=== PATIENT | male | born 1945 | race Caucasian/White ===

== ENCOUNTER 2019-03-17 16:47 | Emergency (ER) | payer MEDICARE, SELFPAY ==
[2019-03-17] VITALS (33 sets, daily range): BP systolic 187–204; BP diastolic 124–140; PULSE 88–100; RESP 12–30; TEMP 36.8; O2SAT 94–99; BMI 26.6
--- NOTE | 2019-03-17 17:30 | PC.NURSE ---
Pt refused to give pharmacy of choice. States will not be taking medications. Pt & very upset the CT was not ordered. [facility] called ED back & confirmed pt was to come to ED to be seen & eval for CT
--- NOTE | 2019-03-17 18:49 | ED_ITS ---
Entered by Adal Caldwell, acting as scribe for Mar 17, 2019 16:47 HPI - Neuro Symptoms/Deficit General: Chief Complaint: Neuro Symptoms/Deficit Stated Complaint: UNSTABLE BALANCE AND NO VIISON IN RIGHT EYE PFSH ED PFSH: Statuses (acute, chronic, etc) shown below reflect problem list status as previously entered and may not be historically accurate Social History (Updated 03/17/19 @ 15:01 by Gabbie Burton LPN) Smoking and tobacco status: former smoker Alcohol intake: current Alcohol intake frequency: 0-2 Drinks per Day History of recent travel: No Course Vital Signs: Vital signs: Vital Signs Temperature 98.2 F 03/17/19 17:19 Pulse Rate 100 03/17/19 17:19 Respiratory Rate 16 03/17/19 17:19 Blood Pressure 204/128 03/17/19 17:19 Pulse Oximetry 96 03/17/19 17:19 Discharge Plan Discharge Prescriptions: No Action No Known Home Medications RF: 0 Coding Level of Care Code ED Community Facilitator for Jackelyn Logan
--- NOTE | 2019-03-17 18:58 | CTR_ITS ---
PROCEDURE INFORMATION: Exam: CT Head Without Contrast Exam date and time: 03/17/2019 7:24 PM Age: 73 years old Clinical indication: Visual disturbance; Additional info: Vision loss TECHNIQUE: Imaging protocol: Computed tomography of the head without contrast. Total DLP: 782.83 mGy-cm Radiation optimization: All CT scans at this facility use at least one of these dose optimization techniques: automated exposure control; mA and/or kV adjustment per patient size (includes targeted exams where dose is matched to clinical indication); or iterative reconstruction. COMPARISON: No relevant prior studies available. FINDINGS: Brain: There is volume loss and periventricular low density compatible with small vessel disease changes. No acute hemorrhage, edema or mass effect. No midline shift. Ventricles: The ventricles are mildly dilated. There is dilatation of all ventricles including the temporal horns of the lateral ventricles and the 3rd ventricle. Some of the periventricular low density may reflect transependymal absorption of CSF. This diffuse mild dilatation concerning for mild normal pressure hydrocephalus. Bones/joints: Unremarkable. No acute fracture. Sinuses: Patchy mucosal thickening is noted in the sinuses with a few small air-fluid levels. Mastoid air cells: Visualized mastoid air cells are well aerated. Soft tissues: Unremarkable. CT/CT head wo con* [id number] IMPRESSION: 1. The ventricles are mildly prominent. There is diffuse mild dilatation concerning for mild normal pressure hydrocephalus. Otherwise no acute intracranial abnormality. 2. Patchy mucosal thickening is noted in the sinuses with a few small air-fluid levels. Radiation Dose CTDIVOL = (mGy): DLP = 782.83 (mGy-cm)
--- NOTE | 2019-03-17 19:04 | ED_ITS ---
Entered by Teri Flores, acting as scribe for Mar 17, 2019 16:47 HPI - Neuro Symptoms/Deficit General: Chief Complaint: Neuro Symptoms/Deficit Stated Complaint: UNSTABLE BALANCE AND NO VIISON IN RIGHT EYE Time Seen by Provider: 03/17/19 19:34 Source: patient and family Mode of arrival: ambulatory Limitations: no limitations History of Present Illness: HPI Narrative: Mr. Munoz is a nice 73-year-old male who comes in complaining of right eye blindness for the past 6 to 8 days. Patient states he sees fine out of his left eye but when he covers his left eye and to look out of his right he is unable to see anything at all. He does not remember if this was sudden or gradual in onset. He denies any headache, vomiting, or any other preceding symptoms prior to this. Nothing makes his symptoms better or worse. The patient was seen at [place] and referred here for a CT scan of the head. The patient denies any other symptoms and states he has no other health problems. Onset (ago): day(s) (6-8 days) Timing confirmed by: spouse Location: other (vision loss in Right eye) History of same: No Severity: mild Relieving factors: none Exacerbating factors: none and other Context: sudden onset Associated symptoms: Reports no associated symptoms; Deny chest pain, diaphoresis, headache(s), malaise, nausea, syncope, vertigo or vomiting Treatments Prior to Arrival: other (seen at [facility] sent to the ED for R vision loss) Review of Systems General: Reports: 10 or more systems reviewed and unremarkable except in HPI and below Const: Denies: fever, chills, body aches, fatigue, malaise or diaphoresis Eyes: Denies: photophobia ENMT: Denies: throat pain, painful swallowing, hoarseness, ear pain, ear discharge, Change in hearing or nasal discharge Card: Denies: chest pain, palpitations, irregular heart rhythm, syncope, pre- syncope, shortness of breath on exertion or shortness of breath when lying down Resp: Denies: shortness of breath, productive cough, non-productive cough, wheezing, coughing up blood or chest congestion GI: Denies: abdominal pain, nausea, vomiting, vomiting blood, coffee grounds in vomit, diarrhea, constipation, cramping, blood in stool or black tarry stool : Denies: flank pain, difficulty urinating, painful urination, urinary frequency, urinary urgency, decreased urine ouput, urinary incontinence or blood in urine Musc: Denies: joint warmth Skin/Breast: Denies: rash, skin tenderness or yellow skin Neuro: Denies: headache, numbness in extremities, weakness in extremities, changes in sensation, lack of coordination, difficulty walking, dizziness, vertigo or confusion Endo: Denies: excessive thirst, tired all the time, cold intolerance, excessive sweating, flushing or hot flashes Jah/Lymph: Denies: easy bruising, easy bleeding, petechiae or enlarged lymph nodes All/Imm: Denies: hives, throat swelling, tongue swelling, facial swelling or acute wheezing PFSH ED PFSH: Statuses (acute, chronic, etc) shown below reflect problem list status as previously entered and may not be historically accurate Social History (Updated 03/17/19 @ 15:01 by Gabbie Burton LPN) Smoking and tobacco status: former smoker Alcohol intake: current Alcohol intake frequency: 0-2 Drinks per Day History of recent travel: No Physical Exam Const: COMMON NORMALS: no apparent distress, oriented x3, no limitations, healthy appearing and well nourished EXAM LIMITATIONS: no altered mental status GENERAL APPEARANCE: cooperative, well kempt and well developed ORIENTATION/CONSCIOUSNESS: Yes awake HENMT: COMMON NORMALS: normocephalic, head/scalp atraumatic, hearing grossly normal bilaterally, external ears normal, EAC's normal, external nose normal and moist oral mucous membranes HEAD & SCALP: normal to inspection, normocephalic and atraumatic; no temporal artery tenderness FACE & SINUS: normal facial exam and face symmetric NOSE: external nose normal and nares normal EXTERNAL EAR: Yes external ears normal EXTERNAL AUDITORY CANAL: EAC's normal MOUTH: oral and palatal mucosa normal and tongue normal Eye: COMMON NORMALS: PERRL, EOMs intact bilaterally, conjunctivae normal, no scleral icterus and no papilledema CONJUNCTIVA: Yes conjunctivae normal PUPIL: Yes PERRL DIRECT OPHTHALMOSCOPY: Yes no papilledema OTHER: Patient has near complete vision loss from the right eye. He has no blinking with confrontation. This is just with the right eye from the left eye he has all vision in all visual nguyen. Funduscopic exam of the right eye reveals a pale retina with a paulino red macula. Anterior chamber is clear without hyphema or cell and flare. Neck/C-Spine: COMMON NORMALS: full ROM, no lymphadenopathy, supple, no meningeal signs and no JVD GENERAL: Yes normal visual inspection and Yes trachea midline CERVICAL SPINE: Yes cervical ROM normal Chest: COMMONS NORMALS: inspection of chest normal and palpation of chest normal Resp: COMMON NORMALS: normal respiratory effort, no retractions, no use of accessory muscles and clear to auscultation bilaterally EFFORT & INSPECTION: Yes able to speak in complete sentences AUSCULTATION: clear to auscultation bilaterally Cardio: COMMON NORMALS: no JVD, regular rate, regular rhythm, S1 normal heart sound, S2 normal heart sound, no gallops, no clicks, no murmurs and no rub JUGULAR VENOUS DISTENTION: no JVD RATE: regular rate RHYTHM: regular rhythm HEART SOUNDS: S1 normal, S2 normal and murmur continuous and systolic GI: COMMON NORMALS: soft to palpation, non-tender, no hepatosplenomegaly and no masses INSPECTION: Yes normal to inspection PALPATION: Yes soft and Yes no hepatosplenomegaly : COMMON NORMALS: Yes no CVA tenderness BLADDER/KIDNEY EXAM: Yes no CVA tenderness Back/Pelvis: COMMON NORMALS: no CVA tenderness, thoracic and lumbar spine normal to inspection, no thoracic nor lumbar tenderness and thoraco-lumbar ROM normal Extremity: COMMON NORMALS: normal to inspection, full ROM, normal capillary refill, no joint enlargement, no clubbing, cyanosis or edema and no calf tenderness Neuro: COMMON NORMALS: oriented x3, CN's II-XII intact bilaterally, moves all extremities, no focal motor deficits and no sensory deficits noted MENINGEAL SIGNS: Yes no meningeal signs Psych: COMMON NORMALS: mental status grossly normal, thought process normal, cooperative, affect normal, speech normal and activity/motor behavior normal APPEARANCE: Yes well kempt SPEECH: Yes normal speech THOUGHT PROCESS: normal thought process Skin: COMMON NORMALS: no rashes or lesions noted, skin turgor normal, no jaundice, no petechiae and no mottling GENERAL SKIN EXAM: no rashes or lesions noted and turgor normal Course ED course: 2039 -Case reviewed with Dr. Pulido concerning head CT. She agrees this is a outpatient work-up. The patient's symptoms today are not consistent with normal pressure hydrocephalus but more with a monocular eye problem. She states the patient can be referred to her as an outpatient regarding his slightly dilated ventricles but again she feels this is an outpatient work-up. Concerning the patient's sed rate and CRP Dr. Pulido does not believe this is high enough to be temporal arteriolitis. The patient does not have any headache or temporal artery nodularity. She believes the patient can be worked up as an outpatient for this but does agree a referral to Dr. Parra is most appropriate. The case was reviewed with Dr. 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 The fact his vision is been this way for 8+ days is an indication he will unlikely get any vision out of that eye back. He agrees with holding steroids and he will see the patient in his office tomorrow at 11 AM. He agrees based upon these findings glaucoma is unlikely. The patient is been very difficult he is been wanting to leave ever since he first got here. I have talked him about his eye problem and he is stating that he does not know if he will go see Dr. Parra tomorrow as when he uses both eyes he can see fine. I have informed him that he needs to follow-up as there could be a different cause and Dr. Parra could not get a definitive opinion and there is a possibility he could regain vision. It is unclear whether that is swayed him or he will go at all. I have talked him about his high blood pressure and he states that he he does not want to take anything for this but after much insistence by me I believe he may try. I have informed the patient that he has some renal insufficiency, a heart murmur and multiple issues that could all be caused by his high blood pressure and if he does not have them addressed he may suffer many health problems from this. The patient states that he is aware but is undecided as if he will follow-up or not. The patient has been warned about this and as well as his I and he has been told he is welcome to return here even for admission but he is declining all this and wants to be discharged. Vital Signs: Vital signs: Vital Signs Temperature 98.2 F 03/17/19 17:19 Pulse Rate 98 03/17/19 23:04 Respiratory Rate 20 H 03/17/19 23:04 Blood Pressure 189/135 03/17/19 23:04 Pulse Oximetry 96 03/17/19 23:04 MDM - Neuro Symptoms/Deficit Lab Data: Labs: Lab Results 03/17/19 03/17/19 03/17/19 Range/Units 20:20 20:20 20:20 WBC 8.3 (4.0-10.0) 10^3/ uL RBC 5.52 H (4.1-5.3) 10^6/u L Hgb 15.3 (11.7-16.6) g/dL Hct 46.9 (42.0-52.0) % MCV 85.0 (80-94) fL MCH 27.7 L (28.0-34.0) pg MCHC 32.6 (30.0-36.0) g/dL RDW 12.4 (12.1-15.1) % Plt Count 281 (130-400) 10^3/c mm MPV 10.2 (7.4-10.4) fL Neut % (Auto) 73.8 % Lymph % (Auto) 17.1 % Hodgeman % (Auto) 7.7 % Eos % (Auto) 0.5 % Baso % (Auto) 0.4 % Neut # (Auto) 6.1 (1.8-7.7) 10^3/u L Lymph # (Auto) 1.4 (0.8-4.8) 10^3/u L Hodgeman # (Auto) 0.6 (0.2-0.9) 10^3/u L Eos # (Auto) 0.0 (0.0-0.8) 10^3/u L Baso # (Auto) 0.0 (0.0-0.1) 10^3/u L Nucleated RBC % (a uto) 0 % Nucleated RBCs # 0.0 /100WBC ESR (0-10) mm/hr PT 12.60 (10.5-13.3) SECO NDS INR 0.91 (0.8-1.2) APTT 32.7 (23.9-36.7) SECO NDS Sodium 134 L (136-145) mmol/L Potassium 3.5 (3.5-5.1) mmol/L Chloride 95 L (98-107) mmol/L Carbon Dioxide 26 (22-29) mmol/L Anion Gap 16.5 (5-19) BUN 19 (8-23) mg/dL Creatinine 1.6 H (0.7-1.2) mg/dL Glucose 114 H (74-106) mg/dL Calcium 9.7 (8.5-10.5) mg/dL Magnesium 2.2 (1.7-2.3) mg/dL Total Bilirubin 0.4 (0.15-1.2) mg/dL AST 18 (0-40) U/L ALT 19 (0-41) U/L Alkaline Phosphata se 81 (40-130) IU/L Troponin T Baselin e (0-15) ng/mL Troponin T 120 Min [place] (0-15) ng/mL Delta Troponin T (0-10) ABS# C-Reactive Protein (0.0-4.9) mg/L Total Protein 7.3 (6.6-8.7) g/dL Albumin 3.4 L (3.5-5.2) g/dL Globulin 3.9 (1.3-4.6) g/dL Urine Color (Yellow) Urine Appearance (CLEAR) Urine pH (5-7) Ur Specific Gravit y (1.005-1.030) Urine Protein (Negative) Urine Glucose (UA) (Normal) Urine Ketones (Negative) Urine Occult Blood (Negative) Urine Nitrate (Negative) Urine Bilirubin (NEGATIVE) Urine Urobilinogen (Negative) mg/dL Ur Leukocyte Zoey ase (Negative) Urine RBC (0-2) /hpf Urine WBC (0-5) /hpf Ur Squamous Epith Cells (0-5) Urine Bacteria (NONE) Urine Mucus 03/17/19 03/17/19 03/17/19 Range/Units 20:20 20:20 20:20 WBC (4.0-10.0) 10^3/ uL RBC (4.1-5.3) 10^6/u L Hgb (11.7-16.6) g/dL Hct (42.0-52.0) % MCV (80-94) fL MCH (28.0-34.0) pg MCHC (30.0-36.0) g/dL RDW (12.1-15.1) % Plt Count (130-400) 10^3/c mm MPV (7.4-10.4) fL Neut % (Auto) % Lymph % (Auto) % Hodgeman % (Auto) % Eos % (Auto) % Baso % (Auto) % Neut # (Auto) (1.8-7.7) 10^3/u L Lymph # (Auto) (0.8-4.8) 10^3/u L Hodgeman # (Auto) (0.2-0.9) 10^3/u L Eos # (Auto) (0.0-0.8) 10^3/u L Baso # (Auto) (0.0-0.1) 10^3/u L Nucleated RBC % (a uto) % Nucleated RBCs # /100WBC ESR 37 H (0-10) mm/hr PT (10.5-13.3) SECO NDS INR (0.8-1.2) APTT (23.9-36.7) SECO NDS Sodium (136-145) mmol/L Potassium (3.5-5.1) mmol/L Chloride (98-107) mmol/L Carbon Dioxide (22-29) mmol/L Anion Gap (5-19) BUN (8-23) mg/dL Creatinine (0.7-1.2) mg/dL Glucose (74-106) mg/dL Calcium (8.5-10.5) mg/dL Magnesium (1.7-2.3) mg/dL Total Bilirubin (0.15-1.2) mg/dL AST (0-40) U/L ALT (0-41) U/L Alkaline Phosphata se (40-130) IU/L Troponin T Baselin e 17 H (0-15) ng/mL Troponin T 120 Min [place] (0-15) ng/mL Delta Troponin T (0-10) ABS# C-Reactive Protein 50.2 H (0.0-4.9) mg/L Total Protein (6.6-8.7) g/dL Albumin (3.5-5.2) g/dL Globulin (1.3-4.6) g/dL Urine Color (Yellow) Urine Appearance (CLEAR) Urine pH (5-7) Ur Specific Gravit y (1.005-1.030) Urine Protein (Negative) Urine Glucose (UA) (Normal) Urine Ketones (Negative) Urine Occult Blood (Negative) Urine Nitrate (Negative) Urine Bilirubin (NEGATIVE) Urine Urobilinogen (Negative) mg/dL Ur Leukocyte Zoey ase (Negative) Urine RBC (0-2) /hpf Urine WBC (0-5) /hpf Ur Squamous Epith Cells (0-5) Urine Bacteria (NONE) Urine Mucus 03/17/19 03/17/19 Range/Units 21:05 21:50 WBC (4.0-10.0) 10^3/ uL RBC (4.1-5.3) 10^6/u L Hgb (11.7-16.6) g/dL Hct (42.0-52.0) % MCV (80-94) fL MCH (28.0-34.0) pg MCHC (30.0-36.0) g/dL RDW (12.1-15.1) % Plt Count (130-400) 10^3/c mm MPV (7.4-10.4) fL Neut % (Auto) % Lymph % (Auto) % Hodgeman % (Auto) % Eos % (Auto) % Baso % (Auto) % Neut # (Auto) (1.8-7.7) 10^3/u L Lymph # (Auto) (0.8-4.8) 10^3/u L Hodgeman # (Auto) (0.2-0.9) 10^3/u L Eos # (Auto) (0.0-0.8) 10^3/u L Baso # (Auto) (0.0-0.1) 10^3/u L Nucleated RBC % (a uto) % Nucleated RBCs # /100WBC ESR (0-10) mm/hr PT (10.5-13.3) SECO NDS INR (0.8-1.2) APTT (23.9-36.7) SECO NDS Sodium (136-145) mmol/L Potassium (3.5-5.1) mmol/L Chloride (98-107) mmol/L Carbon Dioxide (22-29) mmol/L Anion Gap (5-19) BUN (8-23) mg/dL Creatinine (0.7-1.2) mg/dL Glucose (74-106) mg/dL Calcium (8.5-10.5) mg/dL Magnesium (1.7-2.3) mg/dL Total Bilirubin (0.15-1.2) mg/dL AST (0-40) U/L ALT (0-41) U/L Alkaline Phosphata se (40-130) IU/L Troponin T Baselin e (0-15) ng/mL Troponin T 120 Min [place] 17.59 H (0-15) ng/mL Delta Troponin T 0.59 (0-10) ABS# C-Reactive Protein (0.0-4.9) mg/L Total Protein (6.6-8.7) g/dL Albumin (3.5-5.2) g/dL Globulin (1.3-4.6) g/dL Urine Color Yellow (Yellow) Urine Appearance Clear (CLEAR) Urine pH 6 (5-7) Ur Specific Gravit y 1.020 (1.005-1.030) Urine Protein 3+ H (Negative) Urine Glucose (UA) Norm (Normal) Urine Ketones Negative (Negative) Urine Occult Blood Neg (Negative) Urine Nitrate Negative (Negative) Urine Bilirubin Neg (NEGATIVE) Urine Urobilinogen Norm (Negative) mg/dL Ur Leukocyte Zoey ase Negative (Negative) Urine RBC 0-4 H (0-2) /hpf Urine WBC 0-4 H (0-5) /hpf Ur Squamous Epith Cells None (0-5) Urine Bacteria Trace (NONE) Urine Mucus Trace Imaging Data^: CT Head: Radiologist's impression: [place] [address] CT Scan Report Signed Patient: Ricardo Munoz #: [id number] : 4Acct#:[id number] Age/Sex: 73 / MADM Date: 03/17/19 Loc: ERRoom/Bed: Attending Dr: Ordering Provider/Ordering MD: Camila Matias DO Date of Service: 03/17/19 Procedure(s): CT head wo con* [id number] Accession Number(s): [id number] Report Number: [id number] PROCEDURE INFORMATION: Exam: CT Head Without Contrast Exam date and time: 03/17/2019 7:24 PM Age: 73 years old Clinical indication: Visual disturbance; Additional info: Vision loss TECHNIQUE: Imaging protocol: Computed tomography of the head without contrast. Total DLP: 782.83 mGy-cm Radiation optimization: All CT scans at this facility use at least one of these dose optimization techniques: automated exposure control; mA and/or kV adjustment per patient size (includes targeted exams where dose is matched to clinical indication); or iterative reconstruction. COMPARISON: No relevant prior studies available. FINDINGS: Brain: There is volume loss and periventricular low density compatible with small vessel disease changes. No acute hemorrhage, edema or mass effect. No midline shift. Ventricles: The ventricles are mildly dilated. There is dilatation of all ventricles including the temporal horns of the lateral ventricles and the 3rd ventricle. Some of the periventricular low density may reflect transependymal absorption of CSF. This diffuse mild dilatation concerning for mild normal pressure hydrocephalus. Bones/joints: Unremarkable. No acute fracture. Sinuses: Patchy mucosal thickening is noted in the sinuses with a few small air-fluid levels. Mastoid air cells: Visualized mastoid air cells are well aerated. Soft tissues: Unremarkable. CT/CT head wo con* [id number] IMPRESSION: 1. The ventricles are mildly prominent. There is diffuse mild dilatation concerning for mild normal pressure hydrocephalus. Otherwise no acute intracranial abnormality. 2. Patchy mucosal thickening is noted in the sinuses with a few small air-fluid levels. Radiation Dose CTDIVOL = (mGy): DLP = 782.83 (mGy-cm) Dictated By:Raya Murdock Signed By:Katt Murdockigned Date/Time:03/17/192007 EKG Data^: EKG 1: Attestation: I personally reviewed and interpreted this EKG as follows: EKG interpretation date: 03/17/19 EKG interpretation time: 20:17 Interpretation: Normal sinus rhythm at 92 beats a minute, incomplete right bundle branch block, LVH, nonspecific ST and T wave changes. 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 Parra is expecting you to be seen in his office at 11 AM tomorrow.) Bon Wong PA [Primary Care Provider] - 4-7 days Discharge Diet: Low Cholesterol Discharge Activity: Increase activity as tolerated Patient Instructions: Hypertension, Hypertension (ED) Activity Restrictions/Additional Instructions: Please return to the ER immediately for any of the signs or symptoms listed on your discharge instruction sheets, worsening/changing of your symptoms, you are not getting better as quickly as expected, or for ANY other cause or concerns. Be certain to follow-up with Dr. Parra in his office at 11 AM tomorrow. Take the medications I have given you and be certain to follow-up with your primary care provider as soon as possible for recheck. You are leaving without complete evaluation of all your symptoms so if you change your mind you are more than welcome to return at any time for recheck. Discharge Date/Time: 03/17/19 23:06 Coding Level of Care Code ED Cotton Converter for Chg Fwd Exam Problem Focused The documentation recorded by the Mark kang Bridget Annette, accurately reflects the service I personally performed and the decisions made by Polly lyle Eli N Mar 17, 2019 16:47
--- NOTE | 2019-03-17 19:44 | XR_ITS ---
WS: [id number] Portable AP upright chest, 03/17/2019 Clinical Data: cough Comparison: None. Findings: No nodules, masses or effusions are seen. The heart is normal. The pulmonary vascularity is not increased. No pneumonia or pneumothorax is seen. The aortic arch and descending aorta are tortuo us. XR/XR chest 1V portable [id number] Impression: Atherosclerosis.
[2019-03-17 20:24] LABS: Basophils % 0.4 %; Eosinophils % 0.5 %; Hematocrit 46.9 % (42.0-52.0); Hemoglobin 15.3 g/dL (11.7-16.6); Lymphocytes # 1.4 10^3/uL (0.8-4.8); Lymphocytes % 17.1 %; Mean Corpuscular HGB Conc 32.6 g/dL (30.0-36.0); Mean Corpuscular Hemoglobin 27.7 pg (28.0-34.0); Mean Platelet Volume 10.2 fL (7.4-10.4); Monocytes # 0.6 10^3/uL (0.2-0.9); Monocytes % 7.7 %; Neutrophils # 6.1 10^3/uL (1.8-7.7); Neutrophils % 73.8 %; Nucleated Red Blood Cells % 0 %; Platelet Count 281 10^3/cmm (130-400); Red Blood Count 5.52 10^6/uL (4.1-5.3); Red Cell Distribution Width 12.4 % (12.1-15.1); White Blood Count 8.3 10^3/uL (4.0-10.0)
[2019-03-17 20:37] LABS: INR 0.91 (0.8-1.2)
[2019-03-17 20:38] LABS: Partial Thromboplastin Time 32.7 SECONDS (23.9-36.7)
[2019-03-17] MEDS: sodium chloride 0.9% 1,000 ML 50 ML IV (20:40)
[2019-03-17 20:45] LABS: Alanine Aminotransferase 19 U/L (0-41); Albumin Level 3.4 g/dL (3.5-5.2); Alkaline Phosphatase 81 IU/L (40-130); Anion Gap 16.5 (5-19); Aspartate Amino Transferase 18 U/L (0-40); Blood Urea Nitrogen 19 mg/dL (8-23); Calcium 9.7 mg/dL (8.5-10.5); Carbon Dioxide 26 mmol/L (22-29); Chloride 95 mmol/L (98-107); Globulin 3.9 g/dL (1.3-4.6); Glucose 114 mg/dL (74-106); Magnesium 2.2 mg/dL (1.7-2.3); Potassium 3.5 mmol/L (3.5-5.1); Sodium 134 mmol/L (136-145); Total Bilirubin 0.4 mg/dL (0.15-1.2); Total Protein 7.3 g/dL (6.6-8.7)
[2019-03-17 20:48] LABS: Troponin(5th) Baseline 17 ng/mL (0-15)
[2019-03-17 21:17] LABS: C Reactive Protein 50.2 mg/L (0.0-4.9)
--- NOTE | 2019-03-17 21:36 | PC.NURSE ---
visual acuity exam reveals left eye=20/20 right eye with no sight or color at all
[2019-03-17 21:41] LABS: Bilirubin Urine Neg (NEGATIVE); Blood Urine Neg (Negative); Glucose Urine UA Norm (Normal); Ketones Urine Negative (Negative); Leukocyte Esterase Urine Negative (Negative); Nitrate Urine Negative (Negative); Protein Urine 3+ (Negative); Urine Appearance Clear (CLEAR); Urine Color Yellow (Yellow); Urobilinogen Urine Norm (Negative); pH Urine 6 (5-7)
[2019-03-17 21:42] LABS: Bacteria Urine TRACE; Mucus Urine TRACE; RBC Urine 0-4 /hpf (0-2); WBC Urine 0-4 /hpf (0-5)
--- NOTE | 2019-03-17 21:43 | ECG_ITS ---
Measurements Intervals [place] Rate: 87 P: 52 [place]: 140 QRS: 53 QRSD: 104 T: 66 QT: 360 QTc: 435 SINUS RHYTHM POSSIBLE RIGHT VENTRICULAR CONDUCTION DELAY [RSR (QR) IN V1/V2] MINIMAL VOLTAGE CRITERIA FOR LVH, CONSIDER NORMAL VARIANT [MEETS CRITERIA IN ONE OF: R(aVL), S(V1), R(V5), R(V5/V6)+S(V1)] ST ELEVATION, PROBABLY EARLY REPOLARIZATION [ST ELEVATION WITH NORMALLY IN INFLECTED T WAVE] No previous ECG available for comparison Electronically Signed On 03-18-2019 11:36:11 OFFICE PROFESSIONAL by Justus Lambert M.D. [id number]
--- NOTE | 2019-03-17 21:44 | ECG_ITS ---
Measurements Intervals [place] Rate: 92 P: 52 CT: 137 QRS: 60 QRSD: 102 T: 70 QT: 348 QTc: 432 SINUS RHYTHM POSSIBLE RIGHT VENTRICULAR CONDUCTION DELAY [RSR (QR) IN V1/V2] VOLTAGE CRITERIA FOR LVH [MEETS CRITERIA IN ONE OF: R(aVL), S(V1), R(V5), R (V5/V6)+S(V1)] No previous ECG available for comparison Electronically Signed On 03-18-2019 11:35:54 [place] by Justus Lambert M.D. [id number]
--- NOTE | 2019-03-17 21:44 | PC.NURSE ---
performed second EKG at 2140 and shown to ER doctor.
[2019-03-17 21:59] LABS: Erythrocyte Sedimentation Rate 37 mm/hr (0-10)
[2019-03-17 22:11] LABS: Troponin 5 2HR 17.59 ng/mL (0-15); Troponin 5 2HR Delta 0.59 ABS# (0-10)
--- NOTE | 2019-03-17 22:13 | PC.NURSE ---
informed by tech of elevated Bp's. aware per tech
[2019-03-17] MEDS: hydroCHLOROthiazide 25 mg Tablet PO (22:40)
[2019-03-17] MEDS: lisinopril 20 mg Tablet PO (22:40)
--- NOTE | 2019-03-17 23:03 | PC.NURSE ---
agitated and requesting to be dc'd home
== END 2019-03-17 23:06 | disposition home or self-care (01) ==
PROVIDERS: Emergency Provider Emergency Medicine; PCP Emergency Medicine
DX: H34.11 Central retinal artery occlusion, right eye (principal); I10 Essential (primary) hypertension; Z87.891 Personal history of nicotine dependence
CPT/HCPCS: 36415; 70450; 71045; 80053; 81001; 82947; 83735; 84484; 85025; 85610; 85651; 85730; 86140; 93005; 96360; 99284; A9270; J7030

== ENCOUNTER → 2019-03-19 15:17 | Outpatient (BNVA) | payer MEDICARE, SELFPAY | PROVIDERS: PCP Emergency Medicine; Visit Provider Emergency Medicine | DX: H53.139 Sudden visual loss, unspecified eye (principal); E78.5 Hyperlipidemia, unspecified; E78.1 Pure hyperglyceridemia; I10 Essential (primary) hypertension | CPT/HCPCS: 80061 ==

== ENCOUNTER 2019-04-01 14:47 | Outpatient (CLI) | payer MEDICARE, SELFPAY ==
--- NOTE | 2019-04-01 15:00 | USCV_ITS ---
Ricardo Munoz Age: 73 Gender: M : 1945 Exam Date: 04/01/2019 15:28 Ordering Phys: Bon Wong Technologist: Jo Wright Exam Location: [facility] – [place] Indication: central retinal occusion Risk Factors: Previous Vascular Surgery: Right Brachial BP: / Left Brachial BP: / Right Left Velocity (cm/s) Spectral Plaque Velocity (cm/s) Spectral Plaque Syst/Diast Broadening Syst/Diast Broadening 34.90/ 9.60 Prox CCA 31.00 / 8.00 34.90/ 10.00 Mid CCA 43.30 / 10.10 27.40/ 7.50 Distal CCA 56.10 / 6.40 Hetro / Homo Prox ICA 32.20 / 10.50 Hetro / Homo Mid ICA 122.70/ 34.20 / Homo Distal ICA 80.10 / 22.30 77.70 ECA 47.30 ICA/CCA 2.19 Antegrade Vertebral Antegrade 24.80/ 7.70 cm/s 34.20/ 10.70 cm/s Tri Subclavian Tri 149.9 48.70 0 FINDINGS Moderate diffuse plaques of the right bifurcation No Doppler flow signals in the right internal carotid artery Mild to moderate diffuse plaques at the left bifurcation and proximal carotid artery Moderate to heavy plaques at the mid internal carotid artery on the left side Antegrade flow in the vertebral arteries bilaterally Normal Doppler flow velocities in the external carotid arteries bilaterally CONCLUSIONS #1. 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 Features of hemodynamically significant stenosis in the left mid ICA #3. .Mild to moderate diffuse plaques at the left bifurcation and proximal internal carotid artery. No previous studies are available for comparison. Dr Alexandra Fernandez MD [facility] (Electronically Signed) Final Date: 01 April 2019 20:30 S
--- NOTE | 2019-04-01 15:45 | USCV_ITS ---
Ricardo Munoz Age: 73 Gender: M : 1945 Exam Date: 04/01/2019 15:06 Ordering Phys: Bon Wong Technologist: Jo Wright Exam Location: [facility] – [place], [place] Indication: central retinal artery occlusion BP: / HR: 95 Rhythm: Sinus Technical Quality: Adequate MEASUREMENTS (Male / Female) Normal Values 2D ECHO LV Diastolic Diameter PLAX 4.6 cm 4.2 - 5.9 / 3.9 - 5.3 cm LV Systolic Diameter PLAX 2.0 cm IVS Diastolic Thickness 1.2 cm 0.6 - 1.0 / 0.6 - 0.9 cm IVS Systolic Thickness 1.9 cm LVPW Diastolic Thickness 1.0 cm 0.6 - 1.0 / 0.6 - 0.9 cm LVPW Systolic Thickness 2.3 cm LVOT Diameter 2.0 cm LV Ejection Fraction 2D Teich 86.5 % LV Ejection Fraction MOD 2C 55.0 % LV Ejection Fraction 2C AL 57.2 % LA Diameter 3.4 cm LA Width 2.7 cm LA Height 6.5 cm RA Width 3.1 cm RA Height 5.2 cm M-MODE Aortic Annulus Diameter 3.3 cm LA Ao Ratio MM 1.0 DOPPLER AV Peak Velocity 126.0 cm/s LVOT Peak Velocity 114.0 cm/s AV Area Cont Eq vti 2.9 cm squared AV Area Cont Eq pk 3.0 cm squared MV Peak Velocity 123.0 cm/s MV Area PHT 4.5 cm squared Mitral E to A Ratio 0.6 MV E' Velocity 8.0 cm/s Mitral E to MV E' Ratio 12.0 Mitral E to LV E' Lateral Ratio 8.6 Mitral E to LV E' Septal Ratio 20.4 TR Peak Velocity 98.0 cm/s TR Peak Gradient 3.8 mmHg Right Atrial Pressure 3.0 mmHg Pulmonary Artery Systolic Pressu 6.8 mmHg PV Peak Velocity 95.0 cm/s RV Acceleration Time 0.1 s FINDINGS Left Ventricle Normal left ventricular cavity size. Mild left ventricular hypertrophy. Normal left ventricular systolic function. No regional wall motion abnormalities. Grade I/IV diastolic dysfunction (abnormal relaxation filling pattern), normal to mildly elevated filling pressures. Left ventricular ejection fraction is estimated at 65 %. Right Ventricle Normal right ventricular size and systolic function. Normal right ventricular systolic pressure. Right Atrium The right atrium is normal in size. Left Atrium The left atrium is normal in size. Mitral Valve Structurally normal mitral valve without significant stenosis or prolapse. There is no mitral regurgitation. Aortic Valve Structurally normal trileaflet aortic valve. Mild aortic valve calcification. Aortic valve sclerosis without stenosis or regurgitation. Tricuspid Valve Structurally normal tricuspid valve. Trace tricuspid valve regurgitation. Pulmonic Valve Pulmonic valve not well visualized. Pericardium Normal pericardium without effusion. Aorta Normal ascending aorta dimension. CONCLUSIONS Normal left ventricular cavity size. Mild left ventricular hypertrophy. Normal left ventricular systolic function. No regional wall motion abnormalities. Grade I/IV diastolic dysfunction (abnormal relaxation filling pattern), normal to mildly elevated filling pressures. Left ventricular ejection fraction is estimated at 65 %. There are no prior echocardiogram studies to compare. Dr. Justus Lambert MD (Electronically Signed) Final Date: 01 April 2019 17:02 S
== END 2019-04-01 14:48 | disposition home or self-care (01) ==
LOC: RAD 14:52
PROVIDERS: PCP Emergency Medicine; Visit Provider Emergency Medicine
DX: H34.10 Central retinal artery occlusion, unspecified eye (principal); I65.23 Occlusion and stenosis of bilateral carotid arteries
CPT/HCPCS: 93306; 93880

== ENCOUNTER 2019-04-16 13:25 | Outpatient (CLI) | payer MEDICARE, SELFPAY ==
--- NOTE | 2019-04-16 14:00 | CT_ITS ---
WS: [id number] CTA NECK TECHNIQUE: Contrast enhanced CTA of the neck with coronal and sagittal reformatted images and maximum intensity projection (MIP) images. NASCET criteria utilized. CLINICAL INFORMATION: carotid stenosis COMPARISON: None. DLP: 1805.[address] scans at [facility] use at least one of these dose optimization techniques: automat ed exposure control; mA and/or kV adjustment per patient size (includes targeted exams where dose is matched to clinical indication); or iterative reconstruction. FINDINGS: Aortic calcification. Moderate calcified atheromatous disease. Proximal subclavian arteries are patent. Left dominant vertebral artery. Smaller but patent right vertebral artery. Basilar arter y is patent. Mastoid air cells are well aerated. Mucosal thickening ethmoid air cells. Fluid in the r ight maxillary sinus consistent with sinusitis. Chronic appearing fracture of the right lamina papyra cea with compression. RIGHT: Right common carotid artery is patent. Chronic occlusion right ICA. Right ICA remains occluded to the skull base. Right ECA is patent. LEFT: Left ICA stenosis measures approximately 35%. Left common carotid artery is patent. Mild calcif ied atheromatous disease left carotid bulb extending into the ICA. Left ICA is patent to the skull ba se. Cavernous carotid calcification. CT/CT angio neck [id number] IMPRESSION: 1. Chronic occlusion right ICA. Right ICA remains occluded to the skull base. 2. Left ICA stenosis measures approximately 35%. 3. Left dominant vertebral artery. Smaller but patent right vertebral artery. 4. Right maxillary sinusitis.
[2019-04-16] MEDS: iodixanol 320 mg/mL 100mL Btl 95 ML IV (15:34)
== END 2019-04-16 13:26 | disposition home or self-care (01) ==
LOC: CT 13:28
PROVIDERS: Family Provider Emergency Medicine; PCP Emergency Medicine; Visit Provider Thoracic Surgery (Cardiothoracic Vascular Surgery)
DX: I65.23 Occlusion and stenosis of bilateral carotid arteries (principal); I73.9 Peripheral vascular disease, unspecified; J32.0 Chronic maxillary sinusitis
CPT/HCPCS: 70498

== ENCOUNTER → 2019-04-19 10:38 | Outpatient (BNVA) | payer MEDICARE, SELFPAY | PROVIDERS: Family Provider Emergency Medicine; PCP Emergency Medicine; Visit Provider Nurse Practitioner Family | DX: I10 Essential (primary) hypertension (principal) | CPT/HCPCS: 80053 ==

== ENCOUNTER → 2019-06-23 17:13 | Outpatient (BNVA) | payer MEDICARE, SELFPAY | PROVIDERS: Family Provider Emergency Medicine; PCP Emergency Medicine; Visit Provider Emergency Medicine | DX: E78.1 Pure hyperglyceridemia (principal); E78.5 Hyperlipidemia, unspecified; I10 Essential (primary) hypertension; I65.21 Occlusion and stenosis of right carotid artery; H34.11 Central retinal artery occlusion, right eye | CPT/HCPCS: 80053; 80061; 86140 ==

== ENCOUNTER → 2020-08-10 09:39 | Outpatient (BNVA) | payer MEDICARE, SELFPAY | PROVIDERS: Family Provider Emergency Medicine; PCP Family Medicine; Visit Provider Family Medicine | DX: I10 Essential (primary) hypertension (principal); I65.21 Occlusion and stenosis of right carotid artery; H34.11 Central retinal artery occlusion, right eye; E78.1 Pure hyperglyceridemia; I50.32 Chronic diastolic (congestive) heart failure | CPT/HCPCS: 80053; 80061; 83880; 85025 ==

== ENCOUNTER → 2021-01-12 10:00 | Outpatient (BNVA) | payer MEDICARE, SELFPAY | PROVIDERS: Family Provider Emergency Medicine; PCP Family Medicine; Visit Provider Nurse Practitioner Family | DX: R39.9 Unspecified symptoms and signs involving the genitourinary system (principal) | CPT/HCPCS: 81000 ==

== ENCOUNTER → 2021-05-15 08:37 | Outpatient (BNVA) | payer MEDICARE, SELFPAY | PROVIDERS: Family Provider Emergency Medicine; PCP Family Medicine; Visit Provider Family Medicine | DX: E78.2 Mixed hyperlipidemia (principal); I10 Essential (primary) hypertension; J44.9 Chronic obstructive pulmonary disease, unspecified; N18.4 Chronic kidney disease, stage 4 (severe) | CPT/HCPCS: 80053; 80061; 85025 ==

== ENCOUNTER → 2021-08-02 13:51 | Outpatient (BNVA) | payer MEDICARE, SELFPAY | PROVIDERS: Family Provider Emergency Medicine; PCP Family Medicine; Visit Provider Nurse Practitioner Family | DX: I96 Gangrene, not elsewhere classified (principal); L98.492 Non-pressure chronic ulcer of skin of other sites with fat layer exposed | CPT/HCPCS: 97597; 99203; 99212 ==

== ENCOUNTER → 2021-08-14 10:27 | Outpatient (BNVA) | payer MEDICARE, SELFPAY | PROVIDERS: Family Provider Emergency Medicine; PCP Family Medicine; Visit Provider Family Medicine | DX: I50.32 Chronic diastolic (congestive) heart failure (principal) | CPT/HCPCS: 80048 ==